=== PATIENT | female | born 1965 | race Caucasian/White ===

== ENCOUNTER → 2023-07-13 11:39 | Outpatient (REF) | payer BC, SELFPAY | LOC: HWRAD 11:39 | PROVIDERS: ATTENDING PHYSICIAN Internal Medicine | DX: R10.9 Unspecified abdominal pain (principal) | CPT/HCPCS: 74177; Q9967 ==

== ENCOUNTER → 2024-09-23 15:52 | Outpatient (REF) | payer BC, SELFPAY | LOC: WDC 15:52 | DX: Z12.31 Encounter for screening mammogram for malignant neoplasm of breast (principal) | CPT/HCPCS: 77063; 77067 ==